=== PATIENT | male | born 1990 | race African-American/Black ===

== ENCOUNTER 2024-10-13 00:44 | Emergency (ER) | payer OTHER ==
[~2024-10-13] VITALS: Ht 180.3 cm; Wt 87.0 kg
[2024-10-13 00:56] VITALS: BP 112/73; PULSE 110; RESP 18; TEMP 36.6; O2SAT 98
== END 2024-10-13 01:14 ==
LOC: ER 00:59
DX: F10.129 Alcohol abuse with intoxication, unspecified (principal); Y90.9 Presence of alcohol in blood, level not specified
CPT/HCPCS: 99283